=== PATIENT | male | born 1990 | race Two or more races ===

== ENCOUNTER 2022-03-07 05:50 | Emergency (ER) | payer OTHER ==
[~2022-03-07] VITALS: Ht 170.2 cm; Wt 79.4 kg
[2022-03-07] MEDS ORDERED: TETANUS DIPHTH0.5 ML IM (08:04)
[2022-03-07] MEDS ORDERED: CEPHALEXIN500 MG PO (08:04)
== END 2022-03-07 08:39 ==
LOC: ER 05:50
DX: S61.214A Laceration without foreign body of right ring finger without damage to nail, initial encounter (principal); W26.8XXA Contact with other sharp object(s), not elsewhere classified, initial encounter; Y93.9 Activity, unspecified; Y92.9 Unspecified place or not applicable; Y99.9 Unspecified external cause status